=== PATIENT | male | born 1980 | race Caucasian/White ===

== ENCOUNTER 2016-12-10 08:56 | Emergency (ER) | payer BC ==
[~2016-12-10] VITALS: Ht 177.8 cm; Wt 180.0 kg
[~2016-12-10 08:56] MED LIST: ACET325T38 PO; AZIT250T81 PO; HYDR-3719 PO; METH4TAB27 PO; TRM50T PO
--- OUTSIDE RECORDS SUMMARY | 2016-12-10 09:01 | XMS REPORT ---
Author Author GENERATED, SYSTEM Organization Unknown Address Unknown Phone Unavailable Care Team Providers Care [employer] Designer Name Role Phone UNASSIGNED DOCTOR , DOCTOR PP [phone] Reason For Visit Chief Complaint S62.337 Social History Functional Status Vital Signs Results Problems Encounter Diagnosis No relevant problems exist. Encounters Encounter Diagnosis No relevant problems exist. Plan of Care Procedures Completed , on 07/10/2013 12:00 AM Immunizations No immunizations administered or ordered. Hospital Course Hospital Discharge Instructions Allergies, Adverse Reactions, Alerts Latex Allergy has not been assessed.IV Contrast Allergy has not been assessed. Medication Medication reconciliation has not been performed.
[2016-12-10 09:19] LABS: BASOPHILS % (AUTO) 0 % (0-2); EOSINOPHILS # (AUTO) 0.1 10^3uL; EOSINOPHILS % (AUTO) 1 % (0-4); LYMPHOCYTES # (AUTO) 1.6 X10^3; MEAN CORPUSCULAR VOLUME 94 FL (80-100); MEAN PLATELET VOLUME 8.3 FL (6.0-9.5); MONOCYTES % (AUTO) 10 % (3-11); NEUTROPHILS # (AUTO) 7.2 X10^3; NEUTROPHILS % (AUTO) 73 % (51-67); PLATELET COUNT 297 10^3uL (150-450); WHITE BLOOD COUNT 9.93 10^3uL (4.0-11.0)
[2016-12-10 09:23] LABS: MEAN CORPUSCULAR HGB CONC 36.2 g/dL (31.0-37.0)
[2016-12-10 09:29] LABS: ANION GAP 14.5 MEQ/L (3-15); BUN/CREATININE RATIO 11 (10-20)
[2016-12-10 09:30] LABS: ALBUMIN 4.7 g/dL (3.4-5.0); ALKALINE PHOSPHATASE 88 U/L (38-126); TOTAL PROTEIN 8.1 g/dL (6.4-8.5)
[2016-12-10 09:43] LABS: BILIRUBIN,URINE Negative (Negative); CLARITY,URINE Clear; COLOR,URINE Yellow; GLUCOSE, URINE (UA) Negative (Negative); LEUKOCYTE ESTERASE ,URINE Negative (Negative); UROBILINOGEN,URINE 0.2 mg/dL (0.2-1.0)
[2016-12-10 09:53] LABS: AMPHETAMINE SCREEN, URINE Negative (Negative); CANNABINOID SCREEN, URINE Negative (Negative); METHAMPHETAMINE SCREEN URINE S NEGATIVE (NEGATIVE); OPIATE SCREEN URINE Negative (Negative); PROPOXYPHENE STAT NEGATIVE (NEGATIVE)
[2016-12-10 10:00] LABS: URINE CENTRIFUGED VOLUME 12 mL
[2016-12-10 10:01] LABS: RBC,URINE 0-2 /HPF
--- NOTE | 2016-12-10 11:54 | Diagnostic Imaging Report ---
INDICATION: Cough and chest pain Single view of the chest is obtained. No previous studies available at this time for comparison. Overall heart size and pulmonary vascularity are within normal limits. There does appear to be subcentimeter nodule projecting over the right mid chest which may reside within the lung. No pneumothorax is identified. There is no evidence of significant pleural fluid. There is no evidence of consolidation. IMPRESSION: Subcentimeter nodular focus in the midportion of the right chest may represent a pulmonary nodule. This could be further evaluated with either repeat PA and lateral views of the chest or CT imaging for assessment. Dictated by: Dictated on workstation # [id number]
[2016-12-10 11:57] VITALS: BP 130/86
== END 2016-12-10 12:05 | disposition home or self-care (01) ==
LOC: EDUNIT# 08:56 → ED 08:57
DX: R07.9 Chest pain, unspecified (principal); K02.9 Dental caries, unspecified
CPT/HCPCS: 36415; 71010; 80053; 80307; 80320; 80329; 81003; 81015; 84443; 84484; 85025; 85379; 93005; 99285; J7030; 93010; 99284

== ENCOUNTER → 2016-12-10 | Outpatient (CLI) | payer BC | LOC: EMS 08:40 | PROVIDERS: ATTEND Emergency Medicine | DX: R55 Syncope and collapse (principal) ==

== ENCOUNTER → 2016-12-21 | Emergency (ER) | payer BC ==
[~2016-12-21] VITALS: Ht 180.3 cm; Wt 84.1 kg
[~2016-12-21] MED LIST changes: +ASPIRIN 81 MG CHEW (CHILDREN'S ASA) PO ONE; +NITROGLYCERIN SUBLINGUAL 0.4 MG (NITROQUICK) TABLET SL PRN; +ONDANSETRON 2 MG/ML (Z0FRAN) 2 ML VIAL IV ONE; +SODIUM CHLORIDE 250 ML IV PRN; +SODIUM CHLORIDE FLUSH 10 ML SYR IV PRN; +SODIUM CHLORIDE FLUSH 3 ML SYR IV PRN; +morphine INJ 4 MG/ML 1 ML SYRINGE IV PRN
--- OUTSIDE RECORDS SUMMARY | 2016-12-21 05:08 | XMS REPORT | Continuity of Care Document ---
Author Author [facility] Address Unknown Phone Unavailable Support Name Relationship Address Phone GARRETT CARBALLO MD Caregiver [address] [place] [address] [employer] Next Of Kin [address] [place] [address] Insurance Providers Payer Name Policy Number Subscriber Name Relationship [facility] [id number] Jonathan Vyas 18 Self / Same As Patient Advance Directives Directive Response Recorded Date/Time Advanced Directives No 12/10/16 9:06am Chief Complaint and Reason for Visit Chief Complaint Cardiac Complaint Reason for Visit Chest discomfort [id number] Problems Active Problems Medical Problem Onset Date Status Chest discomfort Unknown Acute Contusion Unknown Resolved Pulmonary nodules Unknown Acute Sinusitis ~11/13/2015 Acute Toe fracture, left Unknown Resolved Toe pain Unknown Resolved Medications Current Home Medications Medication Dose Units Route Directions Days/Qty Instructions Start Date Acetaminophen 325 Mg 325 Mg ORAL As Needed 06/28/14 Past Home Medications Medication Directions Ordered Status Hydrocodone/Acetaminophen 1 Each Tablet, 1 Each Oral Every 4HRS as needed for Pain 06/28/14 Discontinued Azithromycin 6 Tab/Pkt Tablet, 250 Mg Oral See Instructions 11/13/15 Discontinued Tramadol Hcl (Ultram) 50 Mg Tablet, 1-2 Tab Oral Every 6 Hours as needed for Pain 11/13/15 Discontinued Methylprednisolone 21 Tab/Pkt Tablet, 21 Tab Oral As Directed 11/13/15 Discontinued Social History Query Response Start Date Stop Date Smoking Status Current every day smoker Hospital Discharge Instructions No hospital discharge instructions. Plan of Care Discharge Date 12/10/16 12:05pm Disposition 01 HOME OR SELF-CARE Condition at Discharge Stable Instructions/Education Provided Chest Pain That Is Not Caused by the Heart (DC ) Single Pulmonary Nodule Forms Provided Patient Seen In ED Prescriptions See Medication Section Additional Instructions/Education Some of your test results may not be complete prior to your leaving the Emergency Department. The Emergency Department is not authorized to give test results over the phone. Please contact the doctor's office listed in this packet of information for your final results. Follow up with your primary care physician or return to the Emergency Department for worsening or worrisome symptoms. * Emergency Department phone number: [phone], x [phone]* MEDICAL RECORD If you need copies of your X-rays, call [phone]. If you need copies of your medical record, including lab results, a signed authorization for release of records will be required. A telephone call for release of Health Information is not allowed. BILLING Billing can sometimes be confusing and frustrating. To help avoid confusion in the future, please take a moment to acquaint yourself with the billing parties for services. SERVICE BILLING DEMOCRAT Emergency Room Services [facility] Physician Services [facility] X-rays [place] [facility] Patients will receive bills for services from the appropriate provider. If you have any questions about your [facility] bill, our staff will be happy to assist you. Please call [phone], and ask for the billing department. THANK YOU for choosing [facility] as your emergency care provider! Care Plan and Goals ~~Discharge Care Plan~~ Problem: Chest, epigastric or chest wall pain Goal: Decreased pain Instructions: Take medication(s) as directed. Follow home discharge instructions. Follow up with primary care physician or farm loan representative as directed. Functional Status No functional status results. Allergies, Adverse Reactions, Alerts Allergen Type Severity Reaction Status Last Updated Penicillin Allergy Unknown Active 06/28/14 Immunizations Name Given Type Status Date Influenza Vaccine Received if Current 06/24/15 Historical Historical Vital Signs Acute Vital Signs Vital Response Date/Time Temperature (Fahrenheit) 98.2 12/10/2016 11:57am Pulse 88 bpm 12/10/2016 11:57am Respirations 18 12/10/2016 11:57am Height 5 ft 10 in Weight 396 lb Body Mass Index 56.0 kg/m^2 Results Laboratory Results Test Name Result Units Flags Reference Collection Date/Time Result Date/ Time Comments White Blood Count 9.93 10^3uL 4.0-11.0 12/10/2016 9:12/10/2016 9: 23am Red Blood Count 4.82 10^6uL 4.50-5.50 12/10/2016 9:12/10/2016 9: 23am Hemoglobin 16.4 g/dL 13.5-17.0 12/10/2016 9:12/10/2016 9:23am Hematocrit 45.30 % 39.00-50.00 12/10/2016 9:12/10/2016 9:23am Mean Corpuscular Volume 94 FL 80-100 12/10/2016 9:12/10/2016 9: 23am Mean Corpuscular Hemoglobin 34.0 PG 26.0-34.0 12/10/2016 9:2016 9:23am Mean Corpuscular Hemoglobin Concent 36.2 g/dL 31.0-37.0 12/10/2016 9: 12/10/2016 9:23am Red Cell Distribution Width 11.9 % 11.8-15.6 12/10/2016 9:2016 9:23am Platelet Count 297 10^3uL 150-450 12/10/2016 9:12/10/2016 9:23am Mean Platelet Volume 8.3 FL 6.0-9.5 12/10/2016 9:12/10/2016 9: 23am Neutrophils (%) (Auto) 73 % H 51-67 12/10/2016 9:12/10/2016 9:23am Lymphocytes (%) (Auto) 16 % L 20-46 12/10/2016 9:12/10/2016 9:23am Monocytes (%) (Auto) 10 % 3-11 12/10/2016 9:12/10/2016 9:23am Eosinophils (%) (Auto) 1 % 0-4 12/10/2016 9:12/10/2016 9:23am Basophils (%) (Auto) 0 % 0-2 12/10/2016 9:11am 12/10/2016 9:23am Neutrophils # (Auto) 7.2 X10^3 12/10/2016 9:11am 12/10/2016 9:23am Lymphocytes # (Auto) 1.6 X10^3 12/10/2016 9:11am 12/10/2016 9:23am Monocytes # (Auto) 1.0 X10^3 12/10/2016 9:11am 12/10/2016 9:23am Eosinophils # (Auto) 0.1 10^3uL 12/10/2016 9:11am 12/10/2016 9:23am Basophils # (Auto) 0.0 10^3uL 12/10/2016 9:11am 12/10/2016 9:23am D-Dimer < 215 ng/mL 0-500 12/10/2016 9:11am 12/10/2016 9:30am Volume Urine Centrifuged 12 mL 12/10/2016 9:28am 12/10/2016 10: 01am Urine Collection Type CLEAN CATCH 12/10/2016 9:28am 12/10/2016 10: 01am Urine Color Yellow 12/10/2016 9:28am 12/10/2016 10:00am Urine Clarity Clear 12/10/2016 9:28am 12/10/2016 10:00am Urine pH 7.0 5.0 - 8.0 12/10/2016 9:28am 12/10/2016 10:00am Urine Specific [place] 1.015 1.005-1.030 12/10/2016 9:28am 2016 10:00am Urine Protein 1+ H Negative 12/10/2016 9:28am 12/10/2016 10:00am Urine Glucose (UA) Negative Negative 12/10/2016 9:28am 12/10/2016 10: 00am Urine Blood Trace-intact H Negative 12/10/2016 9:28am 12/10/2016 10: 00am Urine Ketones Negative Negative 12/10/2016 9:28am 12/10/2016 10:00am Urine Nitrite Negative Negative 12/10/2016 9:28am 12/10/2016 10:00am Urine Bilirubin Negative Negative 12/10/2016 9:2812/10/2016 10: 00am Urine Urobilinogen 0.2 mg/dL 0.2-1.0 12/10/2016 9:2812/10/2016 10: 00am Urine Leukocyte Esterase Negative Negative 12/10/2016 9:282016 10:00am Urine Microscopic RBC 0-2 /HPF 12/10/2016 9:2812/10/2016 10:01am Urine WBC None Seen /HPF 12/10/2016 9:2812/10/2016 10:01am Urine Bacteria None Seen /HPF 12/10/2016 9:2812/10/2016 10:01am Urine Squamous Epithelial Cells 0-2 /LPF 12/10/2016 9:282016 10:01am Sodium Level 138 mmol/L 135-150 12/10/2016 9:12/10/2016 9:33am Potassium Level 4.0 mmol/L 3.5-5.1 12/10/2016 9:12/10/2016 9:33am Chloride Level 103 mmol/L 98-108 12/10/2016 9:12/10/2016 9:33am Carbon Dioxide Level 24 mmol/L 22-29 12/10/2016 9:12/10/2016 9: 33am Anion Gap 14.5 MEQ/L 3-15 12/10/2016 9:12/10/2016 9:33am Blood Urea Nitrogen 9 mg/dL 7-18 12/10/2016 9:12/10/2016 9:33am Creatinine 0.80 mg/dL 0.8-1.5 12/10/2016 9:12/10/2016 9:33am BUN/Creatinine Ratio 11 10-20 12/10/2016 9:12/10/2016 9:33am Estimat Glomerular Filtration Rate 132.3 12/10/2016 9:2016 9:33am Estimated GFR (Non- 109.4 12/10/2016 9:2016 9:33am Glucose Level 96 mg/dL 70-110 12/10/2016 9:12/10/2016 9:33am Calculated Osmolality 266 mosm/L L 280-300 12/10/2016 9:12/10/2016 9:33am Calcium Level 9.9 mg/dL 8.8-10.8 12/10/2016 9:12/10/2016 9:33am Calcium/Ionized Calcium Ratio 4.0 mg/dL 3.8-4.6 12/10/2016 9:12/10 9:33am Total Bilirubin 1.2 mg/dL H 0.1-1.0 12/10/2016 9:12/10/2016 9:33am Alkaline Phosphatase 88 U/L 38-126 12/10/2016 9:12/10/2016 9:33am Aspartate Amino Transf (AST/SGOT) 22 U/L 15-37 12/10/2016 9:2016 9:33am Alanine Aminotransferase (ALT/SGPT) 36 U/L 30-65 12/10/2016 9: 9:33am Troponin I < 0.012 ng/mL 0.010-0.080 12/10/2016 9:12/10/2016 9: 59am Total Protein 8.1 g/dL 6.4-8.5 12/10/2016 9:12/10/2016 9:33am Albumin 4.7 g/dL 3.4-5.0 12/10/2016 9:12/10/2016 9:33am Albumin/Globulin Ratio 1.382 1.1-1.8 12/10/2016 9:12/10/2016 9: 33am Thyroid Stimulating Hormone (TSH) 1.05 uIU/mL 0.46-4.68 12/10/2016 9: 12/10/2016 10:41am Acetaminophen Level < 10.0 mcg/mL L 10.0-30.0 12/10/2016 9:2016 9:33am Serum Alcohol < 10.0 mg/dL L 10-80 12/10/2016 9:12/10/2016 9:33am Procedures No known history of procedures. Encounters Encounter Location Arrival/Admit Date Discharge/Depart Date Attending Provider Departed Emergency Room [facility] 12/10/16 8:57am 12/10/16 12:05pm GARRETT CARBALLO MD Registered Clinic [facility] 12/10/16 8:40am GARRETT CARBALLO MD Recent Diagnosis
--- NOTE | 2016-12-21 05:18 | NUR ---
was helping patient use urinal, patient was laughing at this time, I over heard her say to him, "quit laughing you are going to get it all over." I then asked his , "was he laughing just now?" and she repsoned, "yes" Other mcclain patient lays on back with eyes closed, moaning and clenching left side of chest with his right hand, when needing him to remove his hand to obtain chest xray I had to pry his hand off chest but then he left his hand down by his side and did not try to put back on chest while getting his xrays done.
[2016-12-21 05:34] LABS: BASOPHILS % (AUTO) 0 % (0-2); EOSINOPHILS # (AUTO) 0.1 10^3uL; EOSINOPHILS % (AUTO) 2 % (0-4); LYMPHOCYTES # (AUTO) 1.9 X10^3; MEAN CORPUSCULAR VOLUME 91 FL (80-100); MEAN PLATELET VOLUME 8.4 FL (6.0-9.5); MONOCYTES # (AUTO) 0.8 X10^3; MONOCYTES % (AUTO) 10 % (3-11); NEUTROPHILS # (AUTO) 5.4 X10^3; NEUTROPHILS % (AUTO) 66 % (51-67); PLATELET COUNT 309 10^3uL (150-450); WHITE BLOOD COUNT 8.24 10^3uL (4.0-11.0)
--- NOTE | 2016-12-21 06:10 | NUR ---
Patient has been resting quietly since Having CT scan. Respirations even and non-labored, at bedside.
[2016-12-21 06:11] LABS: ALBUMIN 4.6 g/dL (3.4-5.0); ALKALINE PHOSPHATASE 88 U/L (38-126); ANION GAP 17.1 MEQ/L (3-15); BUN/CREATININE RATIO 8 (10-20); CALCULATED IONIZED CALCIUM 3.6 mg/dL (3.8-4.6); TOTAL PROTEIN 8.2 g/dL (6.4-8.5)
[2016-12-21 06:14] LABS: D-DIMER* < 215 ng/mL (0-500)
[2016-12-21 06:15] LABS: MEAN CORPUSCULAR HEMOGLOBIN 34.2 PG (26.0-34.0); MEAN CORPUSCULAR HGB CONC 37.4 g/dL (31.0-37.0)
--- NOTE | 2016-12-21 06:26 | NUR ---
Dereje MARIANO), Lab, called with results of CK of [id number].
[2016-12-21 06:27] LABS: CREATINE KINASE 649 U/L (55-170)
[2016-12-21 06:34] LABS: AMPHETAMINE SCREEN, URINE Negative (Negative); CANNABINOID SCREEN, URINE Negative (Negative); METHAMPHETAMINE SCREEN URINE S NEGATIVE (NEGATIVE); OPIATE SCREEN URINE Negative (Negative); PROPOXYPHENE STAT NEGATIVE (NEGATIVE)
--- NOTE | 2016-12-21 06:35 | NUR ---
Dr. Rosenberg informed that they were going to repeat the CT on the face d/t something was showing on the CT that they were unsure if was old or new. Patient's was asked me, " What are they thinking it could be because he really didn't hit his head very hard." I asked her, " So he didn't fall face first because is what I understood EMS to say happened?" She stated, "No he fell butt first then side ways and hit his head on the garage floor but it wasn't very hard." I reassured her that they just want to make sure it isn't anything new or serious that as soon as they get his results they will update her. has been in room except when needing to use the restroom.
[2016-12-21 06:47] LABS: BILIRUBIN,URINE Negative (Negative); CLARITY,URINE Clear; COLOR,URINE Yellow; GLUCOSE, URINE (UA) Negative (Negative); LEUKOCYTE ESTERASE ,URINE Negative (Negative); UROBILINOGEN,URINE 0.2 mg/dL (0.2-1.0)
[2016-12-21 06:54] LABS: RBC,URINE None Seen /HPF; URINE CENTRIFUGED VOLUME 12 mL
--- NOTE | 2016-12-21 07:04 | NUR ---
Report on patient given and patient care resumed by Courtney Marcial RN
--- NOTE | 2016-12-21 07:11 | Diagnostic Imaging Report ---
INDICATION: Syncope and confusion. COMPARISON: 12/10/2016. FINDINGS: Single frontal view of the chest is obtained. Heart size is normal. The pulmonary vessels appear unremarkable. There is no pneumothorax, mediastinal widening, or pleural fluid demonstrated. Nodular density in the mid right chest is less prominent today. The lungs are otherwise clear. IMPRESSION: There is no radiographic evidence of an acute cardiopulmonary process. There is a persistent subtle nodular density projecting over the mid right chest although this is less prominent than on the recent prior study. Continued radiographic followup or CT is recommended. Dictated by: Dictated on workstation # [id number]
--- NOTE | 2016-12-21 07:13 | Diagnostic Imaging Report ---
PROCEDURE: CT head and CT cervical spine without contrast. TECHNIQUE: Multiple contiguous axial images were obtained through the brain and cervical spine without the use of intravenous contrast. Sagittal and coronal reformations through the cervical spine were then performed. INDICATION: Syncope and confusion. COMPARISON: None. FINDINGS: Head CT: No acute intracranial hemorrhage, mass effect, or edema is demonstrated. Galindo-white junction is preserved. The ventricles appear normal. No focal abnormalities demonstrated. No basilar skull fracture suspected. There is fairly severe mucosal disease within the maxillary and ethmoid sinuses. The right maxillary sinus is nearly completely opacified, and there is a small air-fluid level in the left maxillary sinus. Cervical spine CT: No acute fracture, malalignment, or osseous destructive process is seen. Prevertebral soft tissues appear unremarkable. IMPRESSION: 1. No evidence of an acute intracranial abnormality. Fairly severe mucosal changes in the maxillary and ethmoid sinuses as described. 2. No evidence of an acute cervical spine abnormality. Agree with [facility] interpretation. Dictated by: Dictated on workstation # [id number]
--- NOTE | 2016-12-21 07:15 | Diagnostic Imaging Report ---
PROCEDURE: CT maxillofacial without contrast. TECHNIQUE: Multiple contiguous axial images were obtained through the facial bones without the use of intravenous contrast. INDICATION: Fall, trauma. FINDINGS: There is some chronic mild rightward nasal septal deviation without septal fracture identified. There is no fracture to the nasal bones. The mandible is intact. Zygomatic arches intact. Pterygoid plates intact. The right maxillary sinus is occluded. There is membrane thickening in the left maxillary sinus. Bilateral maxillary sinus tissue extends into the maxillary sinus ostia, occluded and expanded on the right and at least partially occluded on the left. There is opacification of the majority of the ethmoid air cells bilaterally. There is slight membrane disease in the left greater than right frontal sinuses. Sphenoid sinuses are clear. No post-septal or retrobulbar orbital hematoma. No orbital wall fracture. No discrete air-fluid level. The partially visualized mastoid air cells and middle ear cavities were clear. IMPRESSION: Severe paranasal sinus disease likely on an inflammatory basis. No definite hemo-sinus and no visualized facial fracture deformity. Dictated by: Dictated on workstation # [id number]
[2016-12-21 07:29] LABS: CREATINE KINASE 712 U/L (55-170)
--- NOTE | 2016-12-21 07:59 | NUR ---
Dr. Sawyer discusses patient with Dr. Swanson in [place].
--- NOTE | 2016-12-21 08:09 | NUR ---
Dr. Swanson in [place] spoke with Dr. Harris Hospitalist and hospitalist accepts patient.
--- NOTE | 2016-12-21 08:54 | NUR ---
Patient states he wants to leave AMA. This nurse relays to doctor, Dr. Sawyer in room with patient.
[2016-12-21 09:02] VITALS: BP 129/74
== END ==
LOC: EDUNIT# 05:03 → ED 05:04
DX: R55 Syncope and collapse (principal); R07.89 Other chest pain; R91.1 Solitary pulmonary nodule; J32.0 Chronic maxillary sinusitis; Z72.0 Tobacco use; F10.129 Alcohol abuse with intoxication, unspecified; Y90.6 Blood alcohol level of 120-199 mg/100 ml
CPT/HCPCS: 36415; 70450; 70486; 71010; 72125; 80053; 80307; 80320; 80329; 81003; 81015; 82550; 82553; 84484; 85025; 85379; 85610; 85730; 93005; 96360; 96361; 99285; J7030; 93010

== ENCOUNTER → 2016-12-21 | Outpatient (CLI) | payer BC ==
[~2016-12-21] MED LIST changes: -ASPIRIN 81 MG CHEW (CHILDREN'S ASA) PO ONE; -NITROGLYCERIN SUBLINGUAL 0.4 MG (NITROQUICK) TABLET SL PRN; -ONDANSETRON 2 MG/ML (Z0FRAN) 2 ML VIAL IV ONE; -SODIUM CHLORIDE 250 ML IV PRN; -SODIUM CHLORIDE FLUSH 10 ML SYR IV PRN; -SODIUM CHLORIDE FLUSH 3 ML SYR IV PRN; -morphine INJ 4 MG/ML 1 ML SYRINGE IV PRN
== END ==
LOC: EMS 09:05
PROVIDERS: ATTEND Internal Medicine Hospice and Palliative Medicine
DX: R55 Syncope and collapse (principal); R07.89 Other chest pain; F10.929 Alcohol use, unspecified with intoxication, unspecified